=== PATIENT | female | born 1975 | race African-American/Black ===

== ENCOUNTER 2023-09-25 15:05 | Emergency (ER) | payer SELFPAY ==
[~2023-09-25] VITALS: Ht 165.1 cm; Wt 99.0 kg
[2023-09-25 15:12] VITALS: TEMP 98.5; O2SAT 98
[2023-09-25 16:01] LABS: BASOPHILS % 0.5 % (0.0-2.0); EOSINOPHILS % 1.4 % (0.0-5.0); HEMATOCRIT. 38.6 % (36.0-48.0); HEMOGLOBIN. 12.2 g/dL (12.0-16.0); LYMPHOCYTES % 23.8 % (20.0-50.0); MEAN CORPUSCULAR HEMOGLOBIN 25.5 pg (28.0-32.0); MEAN CORPUSCULAR HGB CONC 31.6 g/dL (31.0-37.0); MEAN CORPUSCULAR VOLUME 80.7 fL (81.0-99.0); MEAN PLATELET VOLUME 9.9 fl (7.4-10.4); MONOCYTES % 5.2 % (2.0-8.0); NEUTROPHILS % 69.1 % (40.0-76.0); PLATELET 318 x1000/uL (130-400); RED BLOOD CELL COUNT 4.78 mill/uL (4.2-5.4); RED CELL DISTRIBUTION WIDTH 15.7 % (11.6-14.6); WHITE BLOOD COUNT 9.8 x1000/uL (4.5-11.0)
[2023-09-25 16:16] LABS: ALANINE AMINOTRANSFERASE 11 IU/L (10-49); ALBUMIN 4.3 g/dL (3.2-4.8); ASPARTATE AMINOTRANSFERASE 12 IU/L (<34); BILIRUBIN TOTAL 0.2 mg/dL (0.1-1.0); CALCIUM 9.4 mg/dL (8.7-10.4); CARBON DIOXIDE 27 mEq/L (21-32); CHLORIDE 106 mEq/L (98-107); CREATININE 0.6 mg/dL (0.6-1.0); GLUCOSE 125 mg/dL (70-105); POTASSIUM 4.2 mEq/L (3.5-5.1); PROTEIN TOTAL 7.3 g/dL (6.0-8.3); SODIUM 140 mEq/L (136-145); UREA NITROGEN BLOOD 11 mg/dL (9-23)
[2023-09-25] MEDS ORDERED: APIX5TAB MT (18:16)
[2023-09-25 18:17] VITALS: BP 159/92; PULSE 77; RESP 16
[2023-09-25] MEDS ORDERED: ACET-2708 MT (18:17)
== END 2023-09-25 18:42 | disposition home or self-care (01) ==
LOC: ER 15:05
DX: I82.401 Acute embolism and thrombosis of unspecified deep veins of right lower extremity (principal); I82.411 Acute embolism and thrombosis of right femoral vein
CPT/HCPCS: 36415; 80053; 81025; 85025; 93971; 99284